=== PATIENT | male | born 1955 | race Caucasian/White ===

== ENCOUNTER 2017-05-16 10:46 | Emergency (ER) | payer MEDICARE ==
[2017-05-16] MEDS ORDERED: predniSONE 20 MG TAB ONE (11:21)
[2017-05-16] MEDS ORDERED: Cephalexin 250 MG CAP ONE (11:21)
== END 2017-05-16 11:25 | disposition home or self-care (01) ==
LOC: EDBD → NAV ERS 10:46
DX: L25.9 Unspecified contact dermatitis, unspecified cause (principal); L03.90 Cellulitis, unspecified; I10 Essential (primary) hypertension; E11.9 Type 2 diabetes mellitus without complications; Z87.891 Personal history of nicotine dependence; Z79.4 Long term (current) use of insulin
CPT/HCPCS: 99283; J7506

== ENCOUNTER 2017-06-30 10:49 | Emergency (ER) | payer MEDICARE ==
--- NOTE | 2017-06-30 11:15 | CT ---
CT OF THE BRAIN WITHOUT CONTRAST: Date: 06/30/17 COMPARISON: None. HISTORY: Left-sided weakness; stroke. TECHNIQUE: Multiple contiguous axial images were obtained in a CT of the brain without contrast. FINDINGS: There are scattered hypodensities in the subcortical and periventricular white matter, likely seconda ry to small vessel ischemic disease. There is a more confluent hypodensity in the left occipital lobe , which may represent encephalomalacia. No obvious new large confluent infarction is seen, although e valuation is limited given the extensive hypodensities in the brain. There is no evidence of hydrocep halus, intracranial hemorrhage, or extra-axial fluid collection. The calvarium and overlying soft tissues are unremarkable. The visualized paranasal sinuses and masto id air cells are well aerated. IMPRESSION: Extensive small vessel ischemic disease without acute intracranial abnormality. Results communicated with Dr. Mcdonald at 1107 hours on 06/30/17. CODE CR. POS: [facility]
[2017-06-30 11:16] LABS: #Eosinphils 0.1 thou/uL (0.0-0.7); #Monocytes 0.6 thou/uL (0.11-0.59); #Neutrophils 5.4 thou/uL (1.40-6.50); %Basophils 0.5 % (0.0-1.0); %Eosinophils 1.7 % (0.0-10.0); %Lymphocytes 24.3 % (21.0-51.0); %Monocytes 7.3 % (0.0-10.0); %Neutrophils 66.2 % (42.0-75.0); Hemoglobin 16.6 g/dL (14.0-18.0); Mean Corpuscular HGB CONC 32.2 g/dL (32.0-36.0); Mean Corpuscular Hemoglobin 28.5 pg (27.0-31.0); Mean Corpuscular Volume 88.6 fl (80.0-94.0); Mean Platelet Volume 9.7 fL (7.4-10.4); Platelet Count 151 thou/uL (130-400); RBC Distribution Width 12.8 % (11.5-14.5); Red Blood Cell (RBC) Count 5.82 mill/uL (4.70-6.10); White Blood Cell (WBC) Count 8.2 thou/uL (4.8-10.8)
[2017-06-30 11:22] LABS: INR-International Normal Ratio 1.1; PTT 25.5 SEC (22.9-36.1); Prothrombin Time 13.8 SEC (12.0-14.7)
[2017-06-30 11:27] LABS: ALT (SGPT) 28 U/L (8-55); AST (SGOT) 22 U/L (5-34); Albumin 4.1 g/dL (3.5-5.0); Alkaline Phosphatase 91 U/L (40-150); Anion Gap 14 mmol/L (10-20); BUN (Urea Nitrogen) 9 mg/dL (8.4-25.7); Bilirubin, Total 0.6 mg/dL (0.2-1.2); Calc. Creatinine Clearance 0 mL/min (70-130); Calcium 9.2 mg/dL (7.8-10.44); Carbon Dioxide 25 mmol/L (22-29); Chloride 101 mmol/L (98-107); Estimated GFR-MDRD Greater than 90; Globulin 3.1 g/dL (2.4-3.5); Glucose 313 mg/dL (70-105); Protein, Total 7.2 g/dL (6.0-8.3); Sodium 136 mmol/L (136-145)
[2017-06-30 11:31] LABS: CKMB 0.8 ng/mL (0-6.6); Troponin I Less than 0.010 ng/mL (< 0.028)
== END 2017-06-30 11:49 | disposition short-term general hospital (02) ==
LOC: NAV ERS 10:49 → EDBD 10:49 → NAV ERS 11:49
DX: R53.1 Weakness (principal); K21.9 Gastro-esophageal reflux disease without esophagitis; E11.9 Type 2 diabetes mellitus without complications; Z79.4 Long term (current) use of insulin
CPT/HCPCS: 36415; 36416; 70450; 80053; 82553; 84484; 85025; 85610; 85730

== ENCOUNTER 2018-09-06 18:52 | Emergency (ER) | payer MEDICARE ==
[2018-09-06] MEDS ORDERED: Ondansetron ODT 4 MG TAB ONE (19:12)
[2018-09-06] MEDS ORDERED: Ketorolac Tromethamine 60 MG/2 ML VIAL ONE (20:04)
== END 2018-09-06 20:40 | disposition home or self-care (01) ==
LOC: NAV ERS 18:52
DX: G89.18 Other acute postprocedural pain (principal); M25.512 Pain in left shoulder; Z86.73 Personal history of transient ischemic attack (TIA), and cerebral infarction without residual deficits; K21.9 Gastro-esophageal reflux disease without esophagitis; E11.9 Type 2 diabetes mellitus without complications; F17.220 Nicotine dependence, chewing tobacco, uncomplicated; Z79.899 Other long term (current) drug therapy; Z79.4 Long term (current) use of insulin
CPT/HCPCS: 96372; 96374; J1885; J2270; Q0162

== ENCOUNTER 2019-01-05 13:23 | Emergency (ER) | payer MEDICARE | END 2019-01-05 14:13 | disposition home or self-care (01) | LOC: NAV ERS 13:23 | DX: J06.9 Acute upper respiratory infection, unspecified (principal); K21.9 Gastro-esophageal reflux disease without esophagitis; E11.9 Type 2 diabetes mellitus without complications; F17.220 Nicotine dependence, chewing tobacco, uncomplicated; Z79.899 Other long term (current) drug therapy; Z79.4 Long term (current) use of insulin; Z86.73 Personal history of transient ischemic attack (TIA), and cerebral infarction without residual deficits | CPT/HCPCS: 99281 ==

== ENCOUNTER 2019-03-14 10:58 | Emergency (ER) | payer MEDICARE ==
[~2019-03-14 10:58] MED LIST: Iopamidol 370 76% 100 ML VIAL ONE
--- NOTE | 2019-03-14 11:21 | RAD ---
Portable frontal chest radiograph: 03/14/2019 COMPARISON: 04/07/2013 HISTORY: Pain FINDINGS: Lungs are clear. Heart and mediastinal contours appear within normal limits. There are post operative anchors overlying the left humeral head. IMPRESSION: No acute findings.
[2019-03-14 11:31] LABS: #Basophils 0.1 thou/uL (0.0-0.2); #Eosinphils 0.3 thou/uL (0.0-0.7); #Lymphocytes 2.1 thou/uL (1.20-3.40); #Monocytes 0.4 thou/uL (0.11-0.59); #Neutrophils 4.2 thou/uL (1.40-6.50); %Eosinophils 3.9 % (0.0-10.0); %Lymphocytes 29.3 % (21.0-51.0); %Monocytes 6.2 % (0.0-10.0); %Neutrophils 59.6 % (42.0-75.0); Hemoglobin 15.3 g/dL (14.0-18.0); Mean Corpuscular HGB CONC 32.6 g/dL (32.0-36.0); Mean Corpuscular Volume 85.8 fL (78.0-98.0); Mean Platelet Volume 7.3 fL (7.4-10.4); Platelet Count 165 thou/uL (130-400); RBC Distribution Width 12.7 % (11.5-14.5); Red Blood Cell (RBC) Count 5.49 mill/uL (4.70-6.10)
[2019-03-14 11:42] LABS: ALT (SGPT) 26 U/L (8-55); AST (SGOT) 20 U/L (5-34); Albumin 4.8 g/dL (3.4-4.8); Alkaline Phosphatase 76 U/L (40-110); Anion Gap 17 mmol/L (10-20); BUN (Urea Nitrogen) 17 mg/dL (8.4-25.7); Bilirubin, Total 0.6 mg/dL (0.2-1.2); CK (CPK) 192 U/L (30-200); Calc. Creatinine Clearance 0 mL/min (70-130); Calcium 9.7 mg/dL (7.8-10.44); Carbon Dioxide 23 mmol/L (23-31); Chloride 101 mmol/L (98-107); Estimated GFR-MDRD Greater than 90; Globulin 2.9 g/dL (2.4-3.5); Glucose 230 mg/dL (80-115); Potassium 4.4 mmol/L (3.5-5.1); Protein, Total 7.7 g/dL (5.8-8.1); Sodium 137 mmol/L (136-145)
[2019-03-14] MEDS ORDERED: Aspirin 325 MG TAB ONE (11:50)
[2019-03-14] MEDS ORDERED: Aspirin Chewable 81 MG TAB ONE ×2 (11:52→11:54)
[2019-03-14] MEDS ORDERED: Sodium Chloride 0.9% 1,000 ML ONE (11:54)
[2019-03-14] MEDS ORDERED: Morphine 4 MG/ML VIAL ONE (11:54)
[2019-03-14] MEDS ORDERED: Ondansetron PF 4 MG/2 ML Vial ONE (11:55)
--- NOTE | 2019-03-14 12:47 | CT ---
CT Abdomen Pelvis W Con HISTORY: Right-sided abdomen pain COMPARISON: 02/23/2012 CT examination. FINDINGS: The lung bases are clear of infiltrative process. The liver spleen and pancreas regions appear unremarkable. Minimal enhancement to the gallbladder wal l but no pericholecystic inflammatory change. Right and left adrenal glands and right and left kidneys are normal in size. There is no signs of obs truction, a punctate lower pole right renal calculus is present. No ureteral calculi. There is no significant periaortic or mesenteric lymphadenopathy. CT of pelvis performed with contrast enhancement: Colonic diverticulosis is noted most pronounced in the descending and sigmoid colon region without any inflammatory process. The appendix is normal. No evidence of any pelvic lymphadenopathy or mass. There are arthritic changes of the spine. IMPRESSION: 1. Questionable minimal enhancement to the gallbladder wall the patient has right upper quadrant pain and ultrasound would be suggested. 2. Colonic diverticulosis.
== END 2019-03-14 14:27 | disposition short-term general hospital (02) ==
LOC: NAV ERS 10:58
DX: R07.2 Precordial pain (principal); R10.10 Upper abdominal pain, unspecified; E11.9 Type 2 diabetes mellitus without complications; K21.9 Gastro-esophageal reflux disease without esophagitis; F32.9 Major depressive disorder, single episode, unspecified; F41.9 Anxiety disorder, unspecified; Z87.891 Personal history of nicotine dependence; Z79.4 Long term (current) use of insulin; Z79.82 Long term (current) use of aspirin; Z86.73 Personal history of transient ischemic attack (TIA), and cerebral infarction without residual deficits; Z79.899 Other long term (current) drug therapy
CPT/HCPCS: 71045; 74177; 80053; 82550; 83690; 84484; 85025; 93005; 96361; 96374; 96375; J2270; J2405; J7050; Q9967

== ENCOUNTER 2019-08-28 16:26 | Emergency (ER) | payer MEDICARE ==
[2019-08-28] MEDS ORDERED: Promethazine HCl 25 MG/ML VIAL ONE (16:57)
[2019-08-28] MEDS ORDERED: Sodium Chloride 0.9% 1,000 ML ONE (16:57)
[2019-08-28] MEDS ORDERED: Adacel (T-DAP) 0.5 ML SYRINGE ONE (16:57)
[2019-08-28] MEDS ORDERED: Morphine 4 MG/ML VIAL ONE (16:57)
[2019-08-28 17:04] LABS: #Eosinphils 0.4 thou/uL (0.0-0.7); #Lymphocytes 2.1 thou/uL (1.20-3.40); #Monocytes 0.5 thou/uL (0.11-0.59); %Basophils 0.5 % (0.0-1.0); %Eosinophils 6.3 % (0.0-10.0); %Lymphocytes 29.4 % (21.0-51.0); %Monocytes 7.5 % (0.0-10.0); %Neutrophils 56.2 % (42.0-75.0); Hemoglobin 15.5 g/dL (14.0-18.0); Mean Corpuscular HGB CONC 32.2 g/dL (32.0-36.0); Mean Corpuscular Hemoglobin 28.1 pg (27.0-31.0); Mean Corpuscular Volume 87.4 fL (78.0-98.0); Mean Platelet Volume 9.1 fL (7.4-10.4); Platelet Count 165 thou/uL (130-400); White Blood Cell (WBC) Count 7.1 thou/uL (4.8-10.8)
[2019-08-28 17:06] LABS: PTT 26.6 SEC (22.9-36.1); Prothrombin Time 13.4 SEC (12.0-14.7)
[2019-08-28] MEDS ORDERED: Morphine 2 MG/ML SYRINGE ONE (18:05)
[2019-08-28 18:10] LABS: ALT (SGPT) 44 U/L (8-55); AST (SGOT) 25 U/L (5-34); Albumin 4.4 g/dL (3.4-4.8); Alkaline Phosphatase 74 U/L (40-110); Anion Gap 17 mmol/L (10-20); BUN (Urea Nitrogen) 15 mg/dL (8.4-25.7); Bilirubin, Total 0.4 mg/dL (0.2-1.2); CK (CPK) 142 U/L (30-200); Calc. Creatinine Clearance 0 mL/min (70-130); Calcium 9.6 mg/dL (7.8-10.44); Carbon Dioxide 25 mmol/L (23-31); Chloride 102 mmol/L (98-107); Estimated GFR-MDRD 72; Glucose 219 mg/dL (80-115); Potassium 4.1 mmol/L (3.5-5.1); Protein, Total 7.4 g/dL (5.8-8.1); Sodium 140 mmol/L (136-145)
[2019-08-28 23:29] LABS: #Eosinphils 0.4 thou/uL (0.0-0.7); #Lymphocytes 2.4 thou/uL (1.20-3.40); #Monocytes 0.6 thou/uL (0.11-0.59); #Neutrophils 3.7 thou/uL (1.40-6.50); %Basophils 0.6 % (0.0-1.0); %Eosinophils 6.1 % (0.0-10.0); %Lymphocytes 33.5 % (21.0-51.0); %Neutrophils 51.9 % (42.0-75.0); Mean Corpuscular HGB CONC 32.7 g/dL (32.0-36.0); Mean Corpuscular Hemoglobin 28.5 pg (27.0-31.0); Mean Platelet Volume 7.8 fL (7.4-10.4); Platelet Count 151 thou/uL (130-400); RBC Distribution Width 12.6 % (11.5-14.5); Red Blood Cell (RBC) Count 4.91 mill/uL (4.70-6.10); White Blood Cell (WBC) Count 7.2 thou/uL (4.8-10.8)
[2019-08-28 23:30] LABS: INR-International Normal Ratio 1.1; Prothrombin Time 13.8 SEC (12.0-14.7)
[2019-08-28 23:31] LABS: PTT 27.8 SEC (22.9-36.1)
[2019-08-28 23:39] LABS: ALT (SGPT) 38 U/L (8-55); AST (SGOT) 20 U/L (5-34); Albumin 3.9 g/dL (3.4-4.8); Alkaline Phosphatase 64 U/L (40-110); Anion Gap 13 mmol/L (10-20); BUN (Urea Nitrogen) 13 mg/dL (8.4-25.7); Bilirubin, Total 0.4 mg/dL (0.2-1.2); CK (CPK) 114 U/L (30-200); Calc. Creatinine Clearance 0 mL/min (70-130); Calcium 8.9 mg/dL (7.8-10.44); Carbon Dioxide 27 mmol/L (23-31); Chloride 102 mmol/L (98-107); Estimated GFR-MDRD Greater than 90; Globulin 2.5 g/dL (2.4-3.5); Glucose 124 mg/dL (80-115); Protein, Total 6.4 g/dL (5.8-8.1); Sodium 138 mmol/L (136-145)
[2019-08-29] MEDS ORDERED: HYDROcodone/Acetaminophen 5/325 mg Tablet ONE (00:15)
== END 2019-08-29 00:15 | disposition home or self-care (01) ==
LOC: NAV ERS 16:26
DX: T63.001A Toxic effect of unspecified snake venom, accidental (unintentional), initial encounter (principal); E78.5 Hyperlipidemia, unspecified; E78.00 Pure hypercholesterolemia, unspecified; I10 Essential (primary) hypertension; E11.9 Type 2 diabetes mellitus without complications; K21.9 Gastro-esophageal reflux disease without esophagitis; F41.9 Anxiety disorder, unspecified; F32.9 Major depressive disorder, single episode, unspecified; F17.220 Nicotine dependence, chewing tobacco, uncomplicated; Z79.82 Long term (current) use of aspirin; Z79.899 Other long term (current) drug therapy; Z79.4 Long term (current) use of insulin
CPT/HCPCS: 36415; 80053; 82550; 85025; 85610; 85730; 86850; 86900; 86901; 90471; 90715; 96365; 96366; 96375; 96376; J2270; J2550; J7050

== ENCOUNTER 2019-12-04 14:18 | Outpatient (CLI) | payer MEDICARE ==
--- NOTE | 2019-12-04 14:44 | RAD ---
EXAM: 3 views of the lumbosacral spine HISTORY: Low back pain COMPARISON: None FINDINGS: 3 views of the lumbosacral spine shows normal height and alignment of the vertebral bodies and intervertebral discs without fracture or subluxation. Small moderate osteophytes are seen throughout the lumbar spine. Posterior facet arthrosis is seen in the lower lumbosacral spine. The sacroiliac joints are unremarkable. IMPRESSION: Degenerative changes of lumbar spine without acute osseous abnormality.
--- NOTE | 2019-12-04 15:01 | RAD ---
THORACIC SPINE THREE VIEWS: 12/04/19 HISTORY: Back pain. FINDINGS: Multilevel degenerative changes are seen. No definite fracture, subluxation or bony destruction is no kelsea. IMPRESSION: Spinal spondylosis. POS: [facility]
== END 2019-12-04 14:19 | disposition home or self-care (01) ==
LOC: NAV RAD 14:18
PROVIDERS: ATTEND Family Medicine
DX: M54.41 Lumbago with sciatica, right side (principal); F41.1 Generalized anxiety disorder; M47.814 Spondylosis without myelopathy or radiculopathy, thoracic region; M47.816 Spondylosis without myelopathy or radiculopathy, lumbar region
CPT/HCPCS: 72072; 72100

== ENCOUNTER 2020-02-07 13:43 | Emergency (ER) | payer MEDICARE ==
[2020-02-07] MEDS ORDERED: Sodium Chloride 0.9% 1,000 ML ONE ×2 (14:23→16:27)
[2020-02-07] MEDS ORDERED: Fentanyl 100 MCG/2 ML VIAL ONE (14:23)
[2020-02-07 14:34] LABS: #Eosinphils 0.3 thou/uL (0.0-0.7); #Lymphocytes 2.2 thou/uL (1.20-3.40); #Monocytes 0.5 thou/uL (0.11-0.59); %Basophils 0.6 % (0.0-1.0); %Eosinophils 3.6 % (0.0-10.0); %Lymphocytes 27.2 % (21.0-51.0); %Monocytes 6.2 % (0.0-10.0); %Neutrophils 62.4 % (42.0-75.0); Hemoglobin 15.1 g/dL (14.0-18.0); Mean Corpuscular HGB CONC 31.5 g/dL (32.0-36.0); Mean Corpuscular Hemoglobin 28.4 pg (27.0-31.0); Mean Corpuscular Volume 90.4 fL (78.0-98.0); Mean Platelet Volume 8.9 fL (7.4-10.4); Platelet Count 179 thou/uL (130-400); RBC Distribution Width 12.6 % (11.5-14.5); Red Blood Cell (RBC) Count 5.31 mill/uL (4.70-6.10)
[2020-02-07 14:53] LABS: ALT (SGPT) 34 U/L (8-55); AST (SGOT) 23 U/L (5-34); Albumin 4.4 g/dL (3.4-4.8); Alkaline Phosphatase 66 U/L (40-110); Anion Gap 14 mmol/L (10-20); BUN (Urea Nitrogen) 13 mg/dL (8.4-25.7); Bilirubin, Total 0.4 mg/dL (0.2-1.2); Calc. Creatinine Clearance 0 mL/min (70-130); Calcium 9.6 mg/dL (7.8-10.44); Carbon Dioxide 26 mmol/L (23-31); Chloride 102 mmol/L (98-107); Estimated GFR-MDRD Greater than 90; Glucose 158 mg/dL (80-115); Protein, Total 7.4 g/dL (5.8-8.1); Sodium 138 mmol/L (136-145)
[2020-02-07] MEDS ORDERED: ALPRAZolam 0.5 MG TAB ONE (15:01)
--- NOTE | 2020-02-07 16:00 | CT ---
EXAM: CT ABDOMEN AND PELVIS HISTORY: Right lower quadrant pain. Hypertension. Diabetes. COMPARISON: 03/14/2019 Procedure: Multiple contiguous axial images were obtained and a CT of the abdomen and pelvis with IV contrast. C oronal reformats were performed. FINDINGS: Lower Chest: Dependent atelectatic changes. Vessels: Visualized aorta has a normal caliber Heart: Normal heart size. No significant pericardial fluid Abdomen: Portal vein:Patent Gallbladder: Surgically absent Liver: Diffuse hypoattenuation, compatible with hepatic steatosis. Pancreas: within normal limits. Spleen: within normal limits. Adrenals: within normal limits. Kidneys: Symmetric enhancement. No obstructive uropathy Peritoneum: No ascites or free air, no fluid collection. Bowel: Limited evaluation due to the lack of oral contrast administration. No evidence of bowel obstr uction. Ileocecal junction is unremarkable. Normal caliber appendix. Scattered fecal material in a nondistended, nondilated colon. Diverticulosis in the descending colon and sigmoid colon. No evidence of diverticulitis. Mesentery and Retroperitoneum: No enlarged mesenteric or retroperitoneal lymph nodes. Abdominal Wall: within normal limits. Pelvis: Reproductive Organs: Reproductive organs are unremarkable. Pelvis: No mass, lymphadenopathy, free air or free fluid. Bladder: within normal limits. Bones: No lytic or blastic lesions. IMPRESSION: No evidence of acute intraabdominal\pelvic abnormality.
[2020-02-07 16:54] LABS: Bilirubin Negative (Negative); Blood, Urine Trace (Negative); Clarity Clear (Clear); Glucose, Urine (Dipstick) 100 mg/dL (Negative); Ketone, Urine Negative (Negative); Leukocyte Trace (Negative); Nitrite Negative (Negative); Protein, Urine (Dipstick) Negative (Neg-Trace); Specific Gravity, Urine Less/Equal 1.005 (1.005-1.030); Urobilinogen 0.2 mg/dL (Less than 2); pH, Urine 5.5 (5.0-9.0)
[2020-02-07 17:16] LABS: Bacteria/HPF Rare-Few HPF (None Seen); RBC/HPF 0-3 HPF (0-3); Squamous Epithelial 0-3 HPF (0-3)
== END 2020-02-07 17:48 | disposition home or self-care (01) ==
LOC: NAV ERS 13:43
DX: N39.0 Urinary tract infection, site not specified (principal); E78.5 Hyperlipidemia, unspecified; E78.00 Pure hypercholesterolemia, unspecified; I10 Essential (primary) hypertension; K21.9 Gastro-esophageal reflux disease without esophagitis; E11.9 Type 2 diabetes mellitus without complications; F41.9 Anxiety disorder, unspecified; F32.9 Major depressive disorder, single episode, unspecified; F17.220 Nicotine dependence, chewing tobacco, uncomplicated; Z86.73 Personal history of transient ischemic attack (TIA), and cerebral infarction without residual deficits; Z79.82 Long term (current) use of aspirin; Z79.4 Long term (current) use of insulin; Z79.899 Other long term (current) drug therapy
CPT/HCPCS: 74177; 80053; 81003; 81015; 83605; 84484; 85025; 93005; 96361; 96374; J3010; J7050; Q9967

== ENCOUNTER 2020-07-08 10:02 | Emergency (ER) | payer MEDICARE | END 2020-07-08 11:54 | disposition short-term general hospital (02) | LOC: NAV ERS 10:02 | DX: M79.662 Pain in left lower leg (principal); M54.42 Lumbago with sciatica, left side; M79.652 Pain in left thigh; E78.5 Hyperlipidemia, unspecified; E78.00 Pure hypercholesterolemia, unspecified; I10 Essential (primary) hypertension; E11.9 Type 2 diabetes mellitus without complications; K21.9 Gastro-esophageal reflux disease without esophagitis; F17.220 Nicotine dependence, chewing tobacco, uncomplicated; Z79.82 Long term (current) use of aspirin; Z86.73 Personal history of transient ischemic attack (TIA), and cerebral infarction without residual deficits; Z79.4 Long term (current) use of insulin; Z79.899 Other long term (current) drug therapy | CPT/HCPCS: 99284 ==

== ENCOUNTER 2020-10-07 13:35 | Emergency (ER) | payer OTHER, MEDICARE ==
[2020-10-07] MEDS ORDERED: Morphine 4 MG/ML VIAL ONE (14:43)
[2020-10-07] MEDS ORDERED: Cyclobenzaprine 10 MG TAB ONE (14:43)
== END 2020-10-07 15:40 | disposition home or self-care (01) ==
LOC: NAV ERS 13:35
DX: S39.012A Strain of muscle, fascia and tendon of lower back, initial encounter (principal); S43.402A Unspecified sprain of left shoulder joint, initial encounter; E78.5 Hyperlipidemia, unspecified; E78.00 Pure hypercholesterolemia, unspecified; I10 Essential (primary) hypertension; Z86.73 Personal history of transient ischemic attack (TIA), and cerebral infarction without residual deficits; K21.9 Gastro-esophageal reflux disease without esophagitis; E11.9 Type 2 diabetes mellitus without complications; F17.220 Nicotine dependence, chewing tobacco, uncomplicated; Z79.82 Long term (current) use of aspirin; Z79.899 Other long term (current) drug therapy; Z79.4 Long term (current) use of insulin; W18.30XA Fall on same level, unspecified, initial encounter
CPT/HCPCS: 72131; 96372; J2270